=== PATIENT | female | born 1985 | race Caucasian/White ===

== ENCOUNTER 2017-01-08 06:44 | Day surgery (SDC) | payer OTHER ==
[~2017-01-08] VITALS: Ht 165.1 cm; Wt 81.6 kg
[2017-01-08] MEDS ORDERED: HYDROCHLOROTH12.5 MG PO (07:31)
[2017-01-08 07:32] LABS: RED BLOOD COUNT 4.94 M/UL (4.00-5.10); WHITE BLOOD COUNT 10.2 K/UL (4.5-11.0)
[2017-01-08] MEDS ORDERED: PANTOPRAZOLE SO20 MG PO (07:32)
[2017-01-08] MEDS ORDERED: ENALAPRIL MALEAT5 MG PO (07:32)
[2017-01-08 07:53] LABS: BUN/CREATININE RATIO 16 (0-10)
[2017-01-09 06:08] LABS: HEMOGLOBIN 12.1 gm/dl (12.3-15.3)
[2017-01-09] MEDS ORDERED: IBUPROFEN600 MG PO (18:59)
[2017-01-09] MEDS ORDERED: COLACE 100MG C100 MG PO (18:59)
[2017-01-09] MEDS ORDERED: PERCOCET 10-321 EACH PO (19:01)
[2017-01-09] MEDS ORDERED: DILAUDID 2 MG TA2 MG PO (19:02)
== END 2017-01-09 20:00 | disposition home or self-care (01) ==
LOC: OR 06:44 → MED SURG 4 13:11 → OR 01-09 20:00
PROVIDERS: Obstetrics & Gynecology
PROC: 0UB74ZZ Excision of Bilateral Fallopian Tubes, Percutaneous Endoscopic Approach (ICD-10-PCS; 2017-01-08)
PROC: 0UT94ZZ Resection of Uterus, Percutaneous Endoscopic Approach (ICD-10-PCS; principal; 2017-01-08 07:30)
PROC: 0UTC4ZZ Resection of Cervix, Percutaneous Endoscopic Approach (ICD-10-PCS; 2017-01-08 07:30)
DX: N93.9 Abnormal uterine and vaginal bleeding, unspecified (principal); N94.6 Dysmenorrhea, unspecified; N32.89 Other specified disorders of bladder; N80.8 Other endometriosis; I10 Essential (primary) hypertension; K21.9 Gastro-esophageal reflux disease without esophagitis; F17.210 Nicotine dependence, cigarettes, uncomplicated; Z83.3 Family history of diabetes mellitus; Z88.1 Allergy status to other antibiotic agents; Z88.5 Allergy status to narcotic agent; Z79.891 Long term (current) use of opiate analgesic; Z90.49 Acquired absence of other specified parts of digestive tract; Z98.890 Other specified postprocedural states
CPT/HCPCS: 36415; 80053; 81001; 82248; 85014; 85018; 85025; J0690; J1100; J1885; J2250; J2405; J2710; J2795; J3010; J7030; J7120

== ENCOUNTER → 2017-01-13 | Outpatient (CLI) | payer OTHER ==
[~2017-01-13] MED LIST: COLACE 100MG C100 MG PO; DILAUDID 2 MG TA2 MG PO; ENALAPRIL MALEAT5 MG PO; HYDROCHLOROTH12.5 MG PO; IBUPROFEN600 MG PO; PANTOPRAZOLE SO20 MG PO; PERCOCET 10-321 EACH PO
[2017-01-13 15:14] LABS: HEMOGLOBIN 12.2 gm/dl (12.3-15.3); RED BLOOD COUNT 4.06 M/UL (4.00-5.10); WHITE BLOOD COUNT 9.7 K/UL (4.5-11.0)
[2017-01-13 15:32] LABS: BUN/CREATININE RATIO 26 (0-10)
== END ==
LOC: LAB 14:52 → CT 15:30
PROVIDERS: Obstetrics & Gynecology
DX: G89.18 Other acute postprocedural pain (principal); Z98.890 Other specified postprocedural states
CPT/HCPCS: 36415; 80048; 85025; J7050

== ENCOUNTER → 2017-01-19 | Outpatient (CLI) | payer OTHER | LOC: RAD 11:00 | DX: N99.81 Other intraoperative complications of genitourinary system (principal) | CPT/HCPCS: 74430 ==

== ENCOUNTER 2021-11-28 16:09 | Emergency (ER) | payer OTHER ==
[~2021-11-28 16:09] MED LIST changes: +ATIVAN0.5 MG PO; +BACTRIM DS TAB1 EACH PO; +CLEOCIN HCL300 MG PO; +EFFEXOR 37.537.5 MG PO; +FLUCONAZOLE50 MG PO; +LACTINEX TABLET1 EA PO; +LEVAQUIN500 MG PO; +NEURONTIN 300300 MG PO; -PANTOPRAZOLE SO20 MG PO; +PERCOCET 5/325 T1 EA PO; +PHENERGAN 12.12.5 M1 PO; +PRINIVIL5 MG PO; +PROTONIX40 MG PO; +SEROQUEL100 MG PO; +ULTRAM50 MG PO; +ZOFRAN ODT 4 MG4 MG PO
== END 2021-11-28 17:20 | disposition home or self-care (01) ==
LOC: ER1 16:09
DX: S93.601A Unspecified sprain of right foot, initial encounter (principal); E11.9 Type 2 diabetes mellitus without complications; I10 Essential (primary) hypertension; F17.200 Nicotine dependence, unspecified, uncomplicated; Z88.5 Allergy status to narcotic agent; Z88.1 Allergy status to other antibiotic agents; W10.8XXA Fall (on) (from) other stairs and steps, initial encounter
CPT/HCPCS: 73100; 73130; 73590; 73610; 73630; 96374; 99283; J1885